=== PATIENT | female | born 1955 | race Caucasian/White ===

== ENCOUNTER 2017-01-21 10:54 | Outpatient (CLI) | payer SELFPAY ==
[2017-01-21] MEDS ORDERED: ACETAMINOPHEN 500 MG TAB PO SCH (11:10)
[2017-01-21] MEDS ORDERED: diphenhydrAMINE 25 MG CAP PO SCH (11:10)
[2017-01-21] MEDS ORDERED: IMMUNE GLOBULIN 20 GM/200 ML VIAL IV SCH (11:10)
[2017-01-21 12:13] LABS: ANION GAP 11 mEq/L (8-16); CALCIUM 9.2 mg/dL (8.5-10.4); CARBON DIOXIDE 24 mEq/l (22-31); CHLORIDE 107 mEq/L (97-110); CREATININE 0.8 mg/dL (0.6-1.0); GLOMERULAR FILTRATION RATE > 60; GLUCOSE 85 mg/dL (70-100); POTASSIUM 4.1 mEq/L (3.5-5.2); SODIUM 142 mEq/L (134-144)
[2017-01-21 12:32] VITALS: TEMP 97.9
[2017-01-21 13:23] VITALS: BP 123/70; PULSE 62; RESP 17; O2SAT 99
== END 2017-01-21 15:39 | disposition home or self-care (01) ==
LOC: F1NOP 10:54
PROVIDERS: ATTEND Allergy & Immunology Allergy
PROC: 30233S1 Transfusion of Nonautologous Globulin into Peripheral Vein, Percutaneous Approach (ICD-10-PCS; principal; 2017-01-21)
DX: D80.1 Nonfamilial hypogammaglobulinemia (principal)
CPT/HCPCS: J1459

== ENCOUNTER 2017-03-18 11:49 | Outpatient (CLI) | payer SELFPAY ==
[2017-03-18] MEDS ORDERED: IMMUNE GLOBULIN 20 GM/200 ML VIAL IV SCH (12:15)
[2017-03-18] MEDS ORDERED: diphenhydrAMINE 25 MG CAP PO ONE (12:30)
[2017-03-18] MEDS ORDERED: ACETAMINOPHEN 500 MG TAB PO ONE (12:30)
[2017-03-18 13:24] VITALS: RESP 17
[2017-03-18] MEDS ORDERED: IMMUNE GLOBULIN 5 GM/50 ML VIAL IV ONE (13:30)
[2017-03-18] MEDS ORDERED: IMMUNE GLOBULIN 10 GM/100 ML VIAL IV ONE (13:30)
[2017-03-18 13:37] VITALS: TEMP 97.7
[2017-03-18 14:06] VITALS: O2SAT 98
[2017-03-18 14:39] VITALS: BP 119/76; PULSE 72
== END 2017-03-18 15:32 | disposition home or self-care (01) ==
LOC: F1NOP 11:49
PROVIDERS: ATTEND Allergy & Immunology Allergy
PROC: 30233S1 Transfusion of Nonautologous Globulin into Peripheral Vein, Percutaneous Approach (ICD-10-PCS; principal; 2017-03-18)
DX: D80.1 Nonfamilial hypogammaglobulinemia (principal)
CPT/HCPCS: J1459

== ENCOUNTER → 2017-04-07 | Outpatient (CLI) | payer OTHER | LOC: FIMAGING 15:41 | PROVIDERS: ATTEND Allergy & Immunology Allergy | DX: M47.896 Other spondylosis, lumbar region (principal); M51.36 Other intervertebral disc degeneration, lumbar region ==

== ENCOUNTER 2017-05-16 14:14 | Outpatient (CLI) | payer SELFPAY ==
[2017-05-16] MEDS ORDERED: ACETAMINOPHEN 500 MG TAB PO ONE (14:19)
[2017-05-16] MEDS ORDERED: IMMUNE GLOBULIN 20 GM/200 ML VIAL IV SCH (14:19)
[2017-05-16] MEDS ORDERED: diphenhydrAMINE 25 MG CAP PO ONE (14:19)
[2017-05-16] MEDS ORDERED: IMMUNE GLOBULIN 10 GM/100 ML VIAL IV ONE (14:30)
[2017-05-16] MEDS ORDERED: IMMUNE GLOBULIN 5 GM/50 ML VIAL IV ONE (14:30)
[2017-05-16 15:40] VITALS: TEMP 98.1
[2017-05-16 16:42] VITALS: RESP 16; O2SAT 98
[2017-05-16 17:07] VITALS: BP 107/70; PULSE 93
== END 2017-05-16 18:55 | disposition home or self-care (01) ==
LOC: F1NOP 14:14
PROVIDERS: ATTEND Allergy & Immunology Allergy
PROC: 30233S1 Transfusion of Nonautologous Globulin into Peripheral Vein, Percutaneous Approach (ICD-10-PCS; principal; 2017-05-16)
DX: D80.1 Nonfamilial hypogammaglobulinemia (principal)
CPT/HCPCS: J1459

== ENCOUNTER 2017-06-27 13:38 | Outpatient (CLI) | payer SELFPAY ==
[2017-06-27] MEDS ORDERED: diphenhydrAMINE 25 MG CAP PO SCH (13:54)
[2017-06-27] MEDS ORDERED: IMMUNE GLOBULIN 20 GM/200 ML VIAL IV ONE ×2 (13:54→15:30)
[2017-06-27 14:34] VITALS: RESP 18
[2017-06-27] MEDS ORDERED: ACETAMINOPHEN 500 MG TAB PO SCH (15:00)
[2017-06-27] MEDS ORDERED: IMMUNE GLOBULIN 5 GM/50 ML VIAL IV ONE (15:30)
[2017-06-27] MEDS ORDERED: IMMUNE GLOBULIN 10 GM/100 ML VIAL IV ONE (15:30)
[2017-06-27 15:48] VITALS: TEMP 98.2; O2SAT 98
[2017-06-27 16:21] VITALS: BP 113/72; PULSE 84
== END 2017-06-27 18:51 | disposition home or self-care (01) ==
LOC: F1NOP 13:38
PROVIDERS: ATTEND Allergy & Immunology Allergy
PROC: 30233S1 Transfusion of Nonautologous Globulin into Peripheral Vein, Percutaneous Approach (ICD-10-PCS; principal; 2017-06-27)
DX: D80.1 Nonfamilial hypogammaglobulinemia (principal)
CPT/HCPCS: J1459

== ENCOUNTER 2017-08-05 10:19 | Outpatient (CLI) | payer OTHER ==
[2017-08-05] MEDS ORDERED: IMMUNE GLOBULIN 20 GM/200 ML VIAL IV SCH (10:31)
[2017-08-05] MEDS ORDERED: ACETAMINOPHEN 500 MG TAB PO SCH (10:31)
[2017-08-05] MEDS ORDERED: diphenhydrAMINE 25 MG CAP PO SCH (10:31)
[2017-08-05] MEDS ORDERED: IMMUNE GLOBULIN 5 GM/50 ML VIAL IV ONE (11:00)
[2017-08-05] MEDS ORDERED: IMMUNE GLOBULIN 10 GM/100 ML VIAL IV ONE (11:00)
[2017-08-05 12:37] VITALS: BP 104/56
== END 2017-08-05 14:08 | disposition home or self-care (01) ==
LOC: F1NOP 10:19
PROVIDERS: ATTEND Allergy & Immunology Allergy
PROC: 30233S1 Transfusion of Nonautologous Globulin into Peripheral Vein, Percutaneous Approach (ICD-10-PCS; principal; 2017-08-05)
DX: D80.1 Nonfamilial hypogammaglobulinemia (principal)
CPT/HCPCS: J1459

== ENCOUNTER → 2017-09-13 | Outpatient (CLI) | payer SELFPAY ==
[~2017-09-13] MED LIST: ACETAMINOPHEN 500 MG TAB ONE; ACETAMINOPHEN 500 MG TAB PO SCH; IMMUNE GLOBULIN 10 GM/100 ML VIAL IV ONE; IMMUNE GLOBULIN 5 GM/50 ML VIAL IV SCH; diphenhydrAMINE 25 MG CAP PO ONE; diphenhydrAMINE 25 MG CAP PO SCH
== END ==
LOC: F1NOP 11:28
PROVIDERS: ATTEND Allergy & Immunology Allergy
PROC: 30233S1 Transfusion of Nonautologous Globulin into Peripheral Vein, Percutaneous Approach (ICD-10-PCS; principal; 2017-09-13)
DX: D80.1 Nonfamilial hypogammaglobulinemia (principal)
CPT/HCPCS: J1459

== ENCOUNTER 2017-12-29 10:06 | Outpatient (CLI) | payer OTHER ==
[2017-12-29] MEDS ORDERED: ACETAMINOPHEN 500 MG TAB PO SCH (10:12)
[2017-12-29] MEDS ORDERED: diphenhydrAMINE 25 MG CAP PO SCH (10:12)
[2017-12-29] MEDS ORDERED: IMMUNE GLOBULIN 20 GM/200 ML VIAL IV SCH (10:12)
[2017-12-29] MEDS ORDERED: IMMUNE GLOBULIN 5 GM/50 ML VIAL IV ONE ×2 (11:00)
[2017-12-29] MEDS ORDERED: IMMUNE GLOBULIN 10 GM/100 ML VIAL IV ONE (11:00)
[2017-12-29 12:58] VITALS: BP 108/63
== END 2017-12-29 14:37 | disposition home or self-care (01) ==
LOC: F1NOP 10:06
PROVIDERS: ATTEND Allergy & Immunology Allergy
DX: D80.1 Nonfamilial hypogammaglobulinemia (principal)
CPT/HCPCS: J1459

== ENCOUNTER → 2018-02-10 | Outpatient (CLI) | payer SELFPAY ==
[~2018-02-10] MED LIST changes: +ACETAMINOPHEN 500 MG TAB PO ONE; -ACETAMINOPHEN 500 MG TAB PO SCH; +IMMUNE GLOBULIN 20 GM/200 ML VIAL IV ONE; +IMMUNE GLOBULIN 5 GM/50 ML VIAL IV ONE; -IMMUNE GLOBULIN 5 GM/50 ML VIAL IV SCH; -diphenhydrAMINE 25 MG CAP PO SCH
[2018-02-10 13:36] VITALS: BP 104/62
== END ==
LOC: F1NOP 10:14
PROVIDERS: ATTEND Allergy & Immunology Allergy
PROC: 30233S1 Transfusion of Nonautologous Globulin into Peripheral Vein, Percutaneous Approach (ICD-10-PCS; principal; 2018-02-10)
DX: D80.1 Nonfamilial hypogammaglobulinemia (principal)
CPT/HCPCS: J1459

== ENCOUNTER → 2018-04-27 | Outpatient (CLI) | payer SELFPAY ==
[~2018-04-27] MED LIST changes: -ACETAMINOPHEN 500 MG TAB ONE; -ACETAMINOPHEN 500 MG TAB PO ONE; +ACETAMINOPHEN 500 MG TAB PO SCH; -IMMUNE GLOBULIN 10 GM/100 ML VIAL IV ONE; -IMMUNE GLOBULIN 20 GM/200 ML VIAL IV ONE; +IMMUNE GLOBULIN 20 GM/200 ML VIAL IV SCH; -IMMUNE GLOBULIN 5 GM/50 ML VIAL IV ONE; -diphenhydrAMINE 25 MG CAP PO ONE; +diphenhydrAMINE 25 MG CAP PO SCH
[2018-04-27 15:49] VITALS: BP 101/72
== END ==
LOC: F1NOP 10:15
PROVIDERS: ATTEND Allergy & Immunology Allergy
DX: D80.1 Nonfamilial hypogammaglobulinemia (principal)
CPT/HCPCS: J1459

== ENCOUNTER 2018-05-28 09:10 | Outpatient (CLI) | payer SELFPAY | END 2018-05-28 15:15 | disposition home or self-care (01) | LOC: F1NOP 09:10 ==

== ENCOUNTER 2018-06-30 10:25 | Outpatient (CLI) | payer SELFPAY ==
[2018-06-30] MEDS ORDERED: IMMUNE GLOBULIN 20 GM/200 ML VIAL IV SCH (10:41)
[2018-06-30] MEDS ORDERED: ACETAMINOPHEN 500 MG TAB PO SCH (10:41)
[2018-06-30] MEDS ORDERED: diphenhydrAMINE 25 MG CAP PO SCH (10:41)
[2018-06-30 14:31] VITALS: BP 98/62
== END 2018-06-30 15:00 | disposition home or self-care (01) ==
LOC: F1NOP 10:25
PROVIDERS: ATTEND Allergy & Immunology Allergy
DX: D80.1 Nonfamilial hypogammaglobulinemia (principal)
CPT/HCPCS: J1459

== ENCOUNTER 2018-08-23 10:17 | Outpatient (CLI) | payer SELFPAY | END 2018-08-23 15:17 | disposition home or self-care (01) | LOC: F1NOP 10:17 ==

== ENCOUNTER → 2018-08-23 | Outpatient (CLI) | payer OTHER | LOC: FIMAGING 15:28 | PROVIDERS: ATTEND Allergy & Immunology Allergy | DX: M46.1 Sacroiliitis, not elsewhere classified (principal); M51.36 Other intervertebral disc degeneration, lumbar region ==